=== PATIENT | male | born 1935 | race Caucasian/White ===

== ENCOUNTER → 2018-01-22 07:33 | Outpatient (CLI) | payer MEDICARE, OTHER, SELFPAY ==
--- NOTE | 2018-01-22 | DI.CT.S_ITS ---
PROCEDURE: CT HEAD/BRAIN WO CON INDICATIONS: ESSENTIAL TREMOR/NEUROPATHY TECHNIQUE: Noncontrast 4.5 mm thick angled axial sections acquired from the foramen magnum to the vertex, with coronal and sagittal reformats. For radiation dose reduction, the following was used: automated exposure control, adjustment of mA and/or kV according to patient size. COMPARISON: None. FINDINGS: Image quality: Excellent. CSF spaces: Basal cisterns are patent. No extra-axial fluid collections. The ventricles are symmetric in size and shape. Brain: No intracranial bleeds or masses. Dense calcification involving right frontal lobe periventricular white matter adjacent to frontal horn, which may represent dystrophic calcification from previous infarction/hemorrhage. There is cerebral volume loss for age, with resultant ventricular and sulcal prominence. There are periventricular and deep white matter chronic small vessel ischemic changes. There is intracranial internal carotid artery atherosclerosis. Skull and face: Calvarium and visualized facial bones appear intact, without suspicious lesions. Sinuses: Visualized sinuses and mastoids are clear. IMPRESSION: Dense parenchymal calcification involving right frontal lobe periventricular white matter which may represent dystrophic calcification from old infarction/hemorrhage. No CT evidence of acute intracranial pathology. Dictated by: Mekhi Trinidad M.D. on 01/22/2018 at 9:17 Approved by: Mekhi Trinidad M.D. on 01/22/2018 at 9:26
== END ==
PROVIDERS: PCP Physician Assistant
DX: G25.0 Essential tremor (principal); G62.9 Polyneuropathy, unspecified
CPT/HCPCS: 70450

== ENCOUNTER 2018-02-02 22:17 | Emergency (ER) | payer MEDICARE, OTHER, SELFPAY ==
[2018-02-02 22:41] VITALS: BP 108/70; PULSE 98; RESP 16; TEMP 36.8; O2SAT 95; BMI 25.0
[2018-02-03 00:04] LABS: Bacteria Urine None Seen; WBC Urine None Seen (0-5/HPF)
[2018-02-03 00:25] LABS: Appearance Urine UA CLEAR; Bilirubin Urine UA 1+ (NEGATIVE); Color Urine UA YELLOW; Glucose Urine UA NEGATIVE (Normal); Ketones Urine UA TRACE (NEGATIVE); Leukocyte Esterase Urine UA TRACE (NEGATIVE); Nitrite Urine UA POSITIVE (Negative); Occult Blood Urine UA 3+ (Negative); Protein Urine UA 3+ (Negative); Specific Gravity Urine UA 1.025 (1.000-1.035)
[2018-02-03 00:27] LABS: Culture Indicated Urine Specimen Cultured; RBC Urine >100/HPF (0-5/HPF)
[2018-02-03 00:30] VITALS: BP 122/78; PULSE 92; RESP 16; O2SAT 98
[2018-02-03 00:30] LABS: Hematocrit 40.3 % (41-53); Hemoglobin 13.6 g/dL (13.5-17.5); Mean Corpuscular HGB Conc 33.8 % (30-36); Mean Corpuscular Hemoglobin 30.9 PG (26-34); Mean Corpuscular Volume 91.4 fL (80-100); Platelet Count 219 X10^3/uL (150-400); Red Blood Cell Count 4.41 X10^6/uL (4.5-5.9); Red Cell Distribution Width 14.3 % (11.6-14.8); White Blood Cell Count 5.1 X10^3/uL (4.5-11.0)
[2018-02-03 00:32] LABS: INR 3.8 (0.9-1.3)
[2018-02-03 00:36] LABS: BUN Creatinine Ratio 28.9 (6-22); Blood Urea Nitrogen 26 mg/dL (9-20); Calcium 8.7 mg/dL (8.4-10.2); Carbon Dioxide 27 mmol/L (22-32); Chloride 105 mmol/L (98-107); Estimated Glomerular Filt Rate > 60.0 mL/min (>60); Glucose 92 mg/dL (80-110); HEMOLYSIS < 15 (0-50); Potassium 3.8 mmol/L (3.4-5.1); Sodium 143 mmol/L (137-145)
[2018-02-03 00:37] LABS: Ictotest Urine Negative (Negative)
[2018-02-03 02:23] VITALS: BP 120/92; PULSE 90; RESP 16; O2SAT 98
[2018-02-03 02:29] LABS: Neutrophils Absolute Manual 3315 /uL (3000-5900); Total Cells Counted 100
--- NOTE | 2018-02-03 04:33 | ED_ITS ---
HPI - Male Genitourinary General Chief complaint: Urogenital-Male Stated complaint: BLOOD IN URINE Time Seen by Provider: 02/02/18 22:59 Source: patient Mode of arrival: ambulatory Limitations: no limitations History of Present Illness HPI Narrative: 82-year-old male with history of DVT on Coumadin presents with painless hematuria over the course of the day. He admits to initially pinkish colored urine followed by a darker red but still majority of fluid is urine. He denies any pain nor fever or chills. He admits to a few episodes of nocturia but no significant change. He denies any history of prostate trouble and is unsure if he has had his PSA checked. His most recent Coumadin/INR was 3.2 about a week ago, he is scheduled for a repeat INR on Monday Complaint: other (Hematuria) Onset (ago): hour(s) Duration: constant Severity: moderate Relieving factors: none Exacerbating factors: none Reports blood in urine Related Data Allergies Allergy/AdvReac Type Severity Reaction Status Date / Time No Known Drug Allergies Allergy Verified 02/02/18 22:45 Review of Systems Review of Systems All systems reviewed & are unremarkable except as noted in HPI and below Constitutional Denies chills, Denies fever(s), Denies lethargy and Denies weakness Eyes Denies change in vision, Denies eye discharge, Denies irritation and Denies loss of vision ENT Ears, Nose, Mouth, and Throat: Denies change in voice, Denies neck pain and Denies sore throat Cardiovascular Denies chest pain, Denies irregular heart rhythm, Denies lightheadedness, Denies palpitations, Denies dyspnea, Denies dyspnea on exertion and Denies orthopnea Respiratory Denies cough, Denies dyspnea, Denies dyspnea on exertion and Denies wheezing Gastrointestinal Gastrointestinal: Denies abdominal pain, Denies change in bowel habits, Denies diarrhea, Denies nausea and Denies vomiting Genitourinary Reports hematuria, Denies flank pain, Denies urinary incontinence and Denies urinary urgency Musculoskeletal Denies neck pain Integumentary/Breasts Denies pruritus, Denies erythema, Denies rash and Denies wounds Neurologic Denies confusion, Denies loss of vision and Denies weakness Psychiatric Denies anxiety, Denies confusion, Denies depression, Denies homicidal ideation and Denies suicidal ideation Endocrine Denies palpitations Hematologic/Lymphatic Denies easy bruising Allergic/Immunologic Denies wheezing PFSH Social History Smoking Status: Never smoker Exam Narrative Exam Narrative: GEN: Pleasant, elderly 82-year-old male in no obvious distress , resting comfortably EYES: Pupils are equal, round, and reactive to light and accommodation. Extraoccular muscles are intact bilaterally. There is no subconjunctival hemorrhage or exudate. CHEST: Lungs are clear to auscultation bilaterally and free of wheezes, rales, or rhonchi. Heart rate is regular rhythm, there are no murmurs, clicks, rubs, or gallops. There is no chest wall tenderness. ABD: Abdomen is soft and nontender. There is no guarding or rebound. Bowel sounds are normal in all 4 quadrants. There is no mass or organomegaly. EXT: Full painless ROM of all extremities with no loss of sensation or strength. SKIN: Warm, pink, and dry. No erythema or rash Initial Vital Signs Initial Vital Signs: Vital Signs Temperature 98.3 F 02/02/18 22:41 Pulse Rate 98 H 02/02/18 22:41 Respiratory Rate 16 02/02/18 22:41 Blood Pressure 108/70 02/02/18 22:41 Pulse Oximetry 95 02/02/18 22:41 Course Orders Ordered: ED Orders 02/03/18 00:03 Ictotest Urine Stat Urinalysis and Microscopic Stat Urine Culture Stat Discontinued Medications Albuterol (Ventolin Hfa Prepack) 1 box MISC SEEINSTR ONE Stop: 02/03/18 01:22 Last Admin: 02/03/18 02:22 Dose: Vital Signs - 8 hr 02/02/18 22:41 02/03/18 00:30 02/03/18 02:23 Temperature 98.3 F Pulse Rate 98 H 92 H 90 Respiratory Rate 16 16 16 Blood Pressure 108/70 120/92 H Blood Pressure [Left Arm] 122/78 Pulse Oximetry 95 98 98 MDM - Male Genitourinary Lab Data Result diagrams: 02/02/18 00:18 02/02/18 00:18 Lab Results 02/02/18 02/02/18 02/02/18 Range/Units 00:18 00:18 00:18 WBC 5.1 (4.5-11.0) X10^3/uL RBC 4.41 L (4.5-5.9) X10^6/uL Hgb 13.6 (13.5-17.5) g/dL Hct 40.3 L (41-53) % MCV 91.4 (80-100) fL MCH 30.9 (26-34) PG MCHC 33.8 (30-36) % RDW 14.3 (11.6-14.8) % Plt Count 219 (150-400) X10^3/uL Total Counted 100 Seg Neutrophils % 65.0 (38-70) % Lymphocytes % (Manual) 28.0 (25-45) % Monocytes % (Manual) 3.0 (2-11) % Eosinophils % (Manual) 1.0 L (2-4) % Basophils % (Manual) 2.0 H (0-1) % Myelocytes % 1.0 H (-0) % Neutrophils # (Manual) 3315 (8071-2840) /uL RBC Morphology Not Reportable PT 42.0 H (10.1-12.7) SECONDS INR 3.8 H (0.9-1.3) Sodium 143 (137-145) mmol/L Potassium 3.8 (3.4-5.1) mmol/L Chloride 105 (98-107) mmol/L Carbon Dioxide 27 (22-32) mmol/L BUN 26 H (9-20) mg/dL Creatinine 0.90 (0.66-1.25) mg/dL Estimated GFR > 60.0 (>60) mL/min BUN/Creatinine Ratio 28.9 H (6-22) Glucose 92 (80-110) mg/dL Calcium 8.7 (8.4-10.2) mg/dL Urine Color Urine Appearance Urine pH (4.5-8.0) Ur Specific Str[place] (1.000-1.035) Urine Protein (Negative) Urine Glucose (UA) (Normal) g/dL Urine Ketones (NEGATIVE) Urine Occult Blood (Negative) Urine Nitrate (Negative) Urine Bilirubin (NEGATIVE) Urine Ictotest (Negative) Urine Urobilinogen (0.2) E.U./dL Ur Leukocyte Esterase (NEGATIVE) Urine RBC Urine WBC Ur Squamous Epith Cells Ur Transition Epith Cell Ur Renal Epithelial Cell Calcium Oxalate Crystal Uric Acid Crystals Triple Phos Crystals Other Crystals Amorphous Sediment Urine Bacteria Hyaline Casts Granular Casts RBC Casts WBC Casts Other Casts Urine Mucus Urine Trichomonas Urine Yeast Urine Sperm Ur Culture Indicated? Micro UA Comment 02/02/18 02/03/18 Range/Units 23:35 00:03 WBC (4.5-11.0) X10^3/uL RBC (4.5-5.9) X10^6/uL Hgb (13.5-17.5) g/dL Hct (41-53) % MCV (80-100) fL MCH (26-34) PG MCHC (30-36) % RDW (11.6-14.8) % Plt Count (150-400) X10^3/uL Total Counted Seg Neutrophils % (38-70) % Lymphocytes % (Manual) (25-45) % Monocytes % (Manual) (2-11) % Eosinophils % (Manual) (2-4) % Basophils % (Manual) (0-1) % Myelocytes % (-0) % Neutrophils # (Manual) (3123-7808) /uL RBC Morphology PT (10.1-12.7) SECONDS INR (0.9-1.3) Sodium (137-145) mmol/L Potassium (3.4-5.1) mmol/L Chloride (98-107) mmol/L Carbon Dioxide (22-32) mmol/L BUN (9-20) mg/dL Creatinine (0.66-1.25) mg/dL Estimated GFR (>60) mL/min BUN/Creatinine Ratio (6-22) Glucose (80-110) mg/dL Calcium (8.4-10.2) mg/dL Urine Color Yellow Urine Appearance Clear Urine pH 5.0 (4.5-8.0) Ur Specific [place] 1.025 (1.000-1.035) Urine Protein 3+ H (Negative) Urine Glucose (UA) Negative (Normal) g/dL Urine Ketones Trace H (NEGATIVE) Urine Occult Blood 3+ H (Negative) Urine Nitrate Positive (Negative) Urine Bilirubin 1+ H (NEGATIVE) Urine Ictotest Negative (Negative) Urine Urobilinogen 1.0 (0.2) E.U./dL Ur Leukocyte Esterase Trace H (NEGATIVE) Urine RBC Cancelled >100/hpf Urine WBC Cancelled None seen Ur Squamous Epith Cells Cancelled Ur Transition Epith Cell Cancelled Ur Renal Epithelial Cell Cancelled Calcium Oxalate Crystal Cancelled Uric Acid Crystals Cancelled Triple Phos Crystals Cancelled Other Crystals Cancelled Amorphous Sediment Cancelled Urine Bacteria Cancelled None seen Hyaline Casts Cancelled Granular Casts Cancelled RBC Casts Cancelled WBC Casts Cancelled Other Casts Cancelled Urine Mucus Cancelled Urine Trichomonas Cancelled Urine Yeast Cancelled Urine Sperm Cancelled Ur Culture Indicated? Cancelled Specimen cultured Micro UA Comment Cancelled Not Reportable Discharge Plan Departure Patient Disposition: Home Clinical Impression: Benign hematuria, Abnormal INR Discharge Date/Time: 02/03/18 02:38 Interventions: ED Discharge Assessment Last Done: 02/03/18 02:23 Instructions: Blood in Urine Activity Restrictions/Additional Instructions: *You have been diagnosed with [ acute hematuria ] *What to do: *Skip your coumadin tomorrow and Monday, return to normal dosing on Monday. Follow up for your INR on Monday as planned *Follow up with your primary care provider in 2-3 days, call for an appointment. Let them know you were seen in the Emergency Department and that we ask that you be seen in follow up *Return to ER if you should have any new, worsening or concerning symptoms Referrals: Anne Artis PA-C [Primary Care Provider] -
== END 2018-02-03 02:38 | disposition home or self-care (01) ==
PROVIDERS: Emergency Provider Emergency Medicine; PCP Physician Assistant
DX: R31.9 Hematuria, unspecified (principal); R79.1 Abnormal coagulation profile
CPT/HCPCS: 80048; 81001; 85025; 85610; 87077; 87086; 87186; 99282; 99283

== ENCOUNTER → 2018-02-20 10:15 | Outpatient (CLI) | payer MEDICARE, OTHER, SELFPAY ==
--- NOTE | 2018-02-20 | DI.US.S_ITS ---
PROCEDURE: US ABDOMEN COMPLETE INDICATIONS: HEMATURIA TECHNIQUE: Real-time scanning was performed of the abdominal and retroperitoneal organs, with image documentation. COMPARISON: , CT, CT ABD PELVIS W CON, 01/07/2015, 14:11. FINDINGS: Liver: Liver is normal in size and homogeneous in echotexture. There is a solid-appearing mass within the anterior right hepatic lobe with internal mild vascularity, measuring up to 5.2 x 5.8 x 5.1 cm. A solid mass in this area was not identified on prior CT scanning that showed scattered moderate and large hepatic cyst in this general area, dated 01/07/15. Several of these cysts can be seen, minimally complex containing low-level internal echoes and the largest measures up to 12.0 x 7.8 x 1.6 cm. Gallbladder: Surgically absent. Biliary ducts: Intrahepatic bile ducts are non-dilated. Extrahepatic bile duct caliber measures 5.3 mm. Normal is 6-7 mm or less in diameter, or 10 mm or less post-cholecystectomy. Pancreas: Visualized portions of the pancreas are sonographically normal. Spleen: Spleen is normal in size and homogeneous in echotexture. Kidneys: Kidneys are normal in size and echotexture. Right kidney measures 10.8 cm long; left kidney measures 11.4 cm long. No hydronephrosis or nephrolithiasis. No solid masses. Aorta: Visualized aorta is normal in caliber at less than 3 cm. Iliacs: Proximal common iliac arteries are normal in caliber at less than 2.5 cm. IVC: Intrahepatic inferior vena cava is patent. Miscellaneous: No free abdominal fluid. IMPRESSION: The other solid mass within the anterior right hepatic lobe measuring up to 5.8 cm in maximal dimension, adjacent to the previously documented hepatic cysts which show low-level internal echoes on ultrasound. Contrast-enhanced CT scanning of the abdomen/pelvis is recommended. Both primary and metastatic malignancy could produce this appearance. Additionally, chest imaging at least utilizing PA and lateral chest plain film is recommended to assess for origin of the presumed malignancy within the liver parenchyma. The CT scanning also will assist in preparing for anticipated biopsy. Chest CT scanning would provide a more accurate assessment for origin of metastatic disease than plain film imaging, in my opinion. Dictated by: Sonu Owusu M.D. on 02/20/2018 at 13:04 Approved by: Sonu Owusu M.D. on 02/20/2018 at 13:10
== END ==
PROVIDERS: PCP Physician Assistant; Visit Provider Physician Assistant
DX: R31.9 Hematuria, unspecified (principal); R16.0 Hepatomegaly, not elsewhere classified; K76.89 Other specified diseases of liver
CPT/HCPCS: 76700

== ENCOUNTER → 2018-02-23 09:28 | Outpatient (CLI) | payer MEDICARE, OTHER, SELFPAY ==
--- NOTE | 2018-02-23 | DI.CT.S_ITS ---
PROCEDURE: CT ABDOMEN PELVIS W CON INDICATIONS: Hepatic mass seen on ultrasound. TECHNIQUE: After the administration of oral and intravenous contrast, 5 mm thick sections acquired from the diaphragms to the symphysis. 5 mm thick coronal and sagittal reformats were performed. For radiation dose reduction, the following was used: automated exposure control, adjustment of mA and/or kV according to patient size. COMPARISON: [facility], US, US ABDOMEN COMPLETE, 02/20/2018, 11:05. FINDINGS: Image quality: Excellent. ABDOMEN: Lung bases: There is mild nonspecific pleural thickening noted anteriorly along the inferior right middle lobe and inferior left lingular likely representing scarring. Heart size is normal. There is a small pericardial effusion anteriorly. Solid organs: There are in multiple cysts of varying sizes in the right and left hepatic lobes. The largest, within the anterior right hepatic lobe measures up to approximately 10.9 x 11.3 x 9.8 cm in dimension. A few of the cysts demonstrate attenuation values slightly higher than expected for simple cysts suggestive of internal proteinaceous or hemorrhagic products. A discrete solid hepatic mass is not well-defined on this single phase of contrast enhancement. There is a small curvilinear mass lesion lateral to the right hepatic lobe inferiorly measuring approximately 2.3 cm in craniocaudal dimension by 2.3 x 1.1 cm and transverse dimension. This appears to extend into the lateral abdominal wall musculature. Biliary system is non-dilated. Pancreas enhances normally. Spleen is normal in size and enhancement. No adrenal nodules. Kidneys are normal in size and enhancement, without hydronephrosis. Peritoneum and bowel: There is a small hiatal hernia. Stomach and small bowel loops are normal in caliber and wall thickness. There are a few segments of mild colonic wall thickening including segmental involvement at the hepatic and splenic flexures as well as in the sigmoid colon with mild associated fat stranding. Findings are suggestive of a mild colitis. There are No free fluid or air. Nodes and vessels: No retroperitoneal or mesenteric adenopathy. Aorta and inferior vena cava are normal in caliber. Miscellaneous: No ventral hernias. PELVIS: Genitourinary: There is incomplete distention of the urinary bladder. However, there is lateral wall thickening and mucosal enhancement with mild fatty stranding consistent with a nonspecific cystitis. There are 2 small ureteroceles are bladder diverticula extending from the right aspect of the bladder. The prostate is borderline enlarged. Miscellaneous: No inguinal hernias or adenopathy. Bones: No suspicious bony lesions. No vertebral body compression fractures. IMPRESSION: 1. No discrete solid hepatic mass identified on this single phase of contrast enhanced imaging. Multiple hepatic cysts are redemonstrated including probable hyperdense cysts. Further evaluation may be obtained with a liver protocol MRI to identify a mass correlate to the prior ultrasound as well as further characterize the complex cystic lesions. 2. Bladder wall thickening and mucosal enhancement with mild perivesicular fat stranding compatible with a nonspecific cystitis. Recommend correlation with urinalysis. 3. Scattered segments of mild colonic wall thickening suggestive of a mild colitis. Dictated by: Inocente Beach M.D. on 02/23/2018 at 11:20 Approved by: Inocente Beach M.D. on 02/23/2018 at 11:38
== END ==
PROVIDERS: PCP Physician Assistant; Visit Provider Physician Assistant
DX: R16.0 Hepatomegaly, not elsewhere classified (principal); K76.89 Other specified diseases of liver
CPT/HCPCS: 74177; Q9967

== ENCOUNTER → 2018-03-08 07:51 | Outpatient (CLI) | payer MEDICARE, OTHER, SELFPAY ==
--- NOTE | 2018-03-08 | DI.MRI.S_ITS ---
PROCEDURE: MR ABDOMEN WO/W CON INDICATIONS: LIVER MASS TECHNIQUE: Coronal HASTE, axial 2D FLASH in- and [id number]; axial breath-hold T2 FSE. Dynamic axial VIBE during the administration of contrast; post-contrast coronal VIBE or 2D FLASH with fat saturation from the hepatic dome to the iliac crests. Optional diffusion weighted imaging and ADC may be performed. COMPARISON: [facility], CT, CT ABD PELVIS W CON, 01/07/2015, 14:11. [facility], US, ABDOMEN SONOGRAM, 04/28/2014, 13:15. [facility], CT, ABD/PELVIS W/CON (PNL), 04/28/2014, 11:04. [facility], US, US ABDOMEN COMPLETE, 02/20/2018, 11:05. [facility], CT, CT ABDOMEN PELVIS W CON, 02/23/2018, 10:25. FINDINGS: Image quality: Excellent. Lung bases: No basal pleural effusions. Heart size is normal. Solid organs: Liver is unchanged in size and enhancement. Identified again within the hepatic parenchyma is the presence of multiple cysts containing variable internal content, with variable appearance on T1, T2 and contrast-enhanced pulse sequences. This complexity also is seen on CT scanning and ultrasound scanning recently obtained. A definite malignant appearing mass is not seen. Gallbladder appears surgically absent. Biliary system is non dilated. Pancreas is normal in morphology. Spleen is normal in size and enhancement. No adrenal nodules. Both kidneys demonstrate normal size and enhancement, without hydronephrosis. Nodes and vessels: No retroperitoneal or mesenteric adenopathy by size criteria. Aorta and inferior vena cava are normal in size. Bowel and peritoneum: Unenhanced bowel loops are normal in caliber. No free fluid. Bones and soft tissues: No ventral hernias. Bone marrow is normal in overall signal. IMPRESSION: The liver parenchyma contains multiple simple and complex cysts, small and large, and a definite malignant appearing mass is not found. The imaging characteristics were most worrisome on recent ultrasound scanning, dated 02/20/18. A followup ultrasound therefore is recommended in 6 months and a followup ultrasound in 6 months thereafter would be recommended assuming absence of appreciable change management coordinator time. The likelihood of malignancy in my opinion is very low. Dictated by: Sonu Owusu M.D. on 03/08/2018 at 16:20 Approved by: Sonu Owusu M.D. on 03/08/2018 at 16:38
== END ==
PROVIDERS: PCP Physician Assistant; Visit Provider Physician Assistant
DX: K76.89 Other specified diseases of liver (principal)
CPT/HCPCS: 74183; A9579

== ENCOUNTER → 2018-05-30 13:19 | Outpatient (CLI) | payer MEDICARE, OTHER, SELFPAY ==
--- NOTE | 2018-05-30 | DI.RAD.S_ITS ---
PROCEDURE: XR CERVICAL SPINE 2V OR 3V INDICATIONS: Cervicalgia TECHNIQUE: 3 view(s) of the cervical spine were acquired. COMPARISON: None. FINDINGS: Bones: No fractures or dislocations to the T1 level. The lateral masses of C1 appear intact on the odontoid view. No suspicious bony lesions. Note is made of moderately severe degenerative disc disease at C34 and also at C5-6 and especially C6-7. No subluxation is associated. Soft tissues: No prevertebral soft tissue swelling. 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 No subluxation or trauma is associated. Dictated by: Sonu Owusu M.D. on 05/30/2018 at 13:57 Approved by: Sonu Owusu M.D. on 05/30/2018 at 13:58
== END ==
PROVIDERS: PCP Physician Assistant; Visit Provider Physician Assistant
DX: M50.31 Other cervical disc degeneration, high cervical region (principal); M47.812 Spondylosis without myelopathy or radiculopathy, cervical region
CPT/HCPCS: 72040

== ENCOUNTER → 2018-09-19 11:46 | Outpatient (CLI) | payer MEDICARE, OTHER, SELFPAY ==
--- NOTE | 2018-09-19 | DI.US.S_ITS ---
PROCEDURE: US ABDOMEN COMPLETE INDICATIONS: 6 MONTH FOLLOW UP TECHNIQUE: Real-time scanning was performed of the abdominal and retroperitoneal organs, with image documentation. COMPARISON: [facility], CT, CT ABDOMEN PELVIS W CON, 02/23/2018, 10:25. [facility], US, US ABDOMEN COMPLETE, 02/20/2018, 11:05. FINDINGS: Liver: The liver measures 16.8 cm per multiple hepatic cysts are again identified relatively unchanged. The previously identified solid a hepatic mass in the right lobe measures 15 x 53 x 56 mm compared to 52 x 50 x 52 mm on prior exam. Within the left lobe of the liver, there is a complex focus of hyperechogenicity measuring 20 x 19 x 24 mm. This was not visualized on prior exam. Gallbladder: Gallbladder has been removed. Biliary ducts: Intrahepatic bile ducts are non-dilated. Extrahepatic bile duct caliber measures 7.7 mm. Normal is 6-7 mm or less in diameter, or 10 mm or less post-cholecystectomy. Pancreas: Not visualized.. Spleen: Spleen is normal in size and homogeneous in echotexture. Kidneys: Kidneys are normal in size and echotexture. Right kidney measures 9.8 cm long; left kidney measures 11.2 cm long. No hydronephrosis or nephrolithiasis. No solid masses. Aorta: Visualized aorta is normal in caliber at less than 3 cm. Iliacs: Not visualized. IVC: Intrahepatic inferior vena cava is patent. Miscellaneous: No free abdominal fluid. IMPRESSION: 1. Multiple hepatic cysts, unchanged 2. Right hepatic mass appearing to demonstrate mild interval increase in size. Short interval imaging followup is recommended. 3. Partial appearance of complex focus of heteroechogenicity within the left lobe not previously visualized. While this could represent a complex cyst, development of new mass lesion of other etiology cannot be excluded. As clinically indicated, further evaluation with CT or MRI may be obtained. Dictated by: Salma Funk M.D. on 09/19/2018 at 14:14 Approved by: Salma Funk M.D. on 09/19/2018 at 14:20
== END ==
PROVIDERS: PCP Physician Assistant; Visit Provider Physician Assistant
DX: K76.89 Other specified diseases of liver (principal); R16.0 Hepatomegaly, not elsewhere classified
CPT/HCPCS: 76700

== ENCOUNTER → 2018-09-27 11:15 | Outpatient (CLI) | payer MEDICARE, OTHER, SELFPAY ==
--- NOTE | 2018-09-27 | DI.CT.S_ITS ---
PROCEDURE: CT ABDOMEN PELVIS W CON INDICATIONS: Follow up from US TECHNIQUE: After the administration of oral and intravenous contrast, 5 mm thick sections acquired from the diaphragms to the symphysis. 5 mm thick coronal and sagittal reformats were performed. For radiation dose reduction, the following was used: automated exposure control, adjustment of mA and/or kV according to patient size. COMPARISON: [facility], US, US ABDOMEN COMPLETE, 09/19/2018, 12:27. [facility], CT, CT ABDOMEN PELVIS W CON, 02/23/2018, 10:25. FINDINGS: Image quality: Excellent. ABDOMEN: Lung bases: Lung bases are clear. Heart size is normal. Stable, mild thickening of the anterior pericardium. Solid organs: There has been interval decrease in size and increase in density of one of the anterior left lobe hepatic cysts which may account for changes seen on ultrasound. A no other significant change is seen to any of the multiple hepatic cysts in the right and left hepatic lobes. No visible suspicious solid mass on this single phase of imaging. A few cysts demonstrate scant, peripheral calcification. One in the central right hepatic lobe demonstrates a few fine septations, stable. No intrahepatic biliary dilatation.. Gallbladder is surgically absent.. Biliary system is non-dilated. Pancreas enhances normally. Spleen is normal in size and enhancement. No adrenal nodules. Kidneys are normal in size and enhancement, without hydronephrosis. Peritoneum and bowel: Stomach, small bowel, and colon loops are normal in caliber and wall thickness. No free fluid or air. Nodes and vessels: No retroperitoneal or mesenteric adenopathy. Aorta and inferior vena cava are normal in caliber. Moderate abdominal aortic atherosclerotic calcification. Miscellaneous: No ventral hernias. PELVIS: Genitourinary: The bladder wall is diffusely thickened, however the bladder is decompressed. There is a small right posterolateral bladder diverticulum. Prostate gland is within normal limits for size. Miscellaneous: No inguinal hernias or adenopathy. Bones: No suspicious bony lesions. No vertebral body compression fractures. IMPRESSION: 1. Interval partial involution of one of the numerous left hepatic lobe cysts, probably proteinaceous or hemorrhagic cyst resulting in the appearance seen on recent ultrasound. No development of a left lobe solid mass. 2. Fairly stable appearance of other cystic liver lesions compared to CT dated 02/23/18. 3. Cholecystectomy. 4. Aortic atherosclerosis. 5. Urinary bladder wall thickening and small right bladder diverticulum, chronic. Dictated by: Celia Hollingsworth M.D. on 09/27/2018 at 16:23 Approved by: Celia Hollingsworth M.D. on 09/27/2018 at 16:36
== END ==
PROVIDERS: PCP Physician Assistant; Visit Provider Physician Assistant
DX: K76.89 Other specified diseases of liver (principal); I70.0 Atherosclerosis of aorta; Z90.49 Acquired absence of other specified parts of digestive tract; N32.3 Diverticulum of bladder
CPT/HCPCS: 74177; Q9967

== ENCOUNTER → 2018-10-10 13:08 | Outpatient (CLI) | payer MEDICARE, OTHER, SELFPAY ==
--- NOTE | 2018-10-10 | DI.RAD.S_ITS ---
PROCEDURE: XR SHOULDER LT MIN 2V INDICATIONS: Unspecified rotator cuff tear or rupture of left shoulder TECHNIQUE: 3 views of the shoulder were acquired. COMPARISON: [facility], CR, CHEST 1VW (PORTABLE), 04/28/2014, 9:49. [facility], CR, CHEST 2VW, 04/25/2013, 12:00. FINDINGS: Bones: No fractures or dislocations. No suspicious bony lesions. Visualized ribs appear intact. Soft tissue anchors project in the left humeral head. There is also soft tissue anchor projecting in the axillary pouch, raise the possibility of hardware migration however this is unchanged since 04/28/14. Moderate AC joint degeneration. There is moderate glenohumeral degenerative joint disease Soft tissues: No suspicious soft tissue calcifications. IMPRESSION: Moderate left shoulder joint degeneration. Dictated by: Lawrence Dialey M.D. on 10/10/2018 at 16:23 Approved by: Lawrence Dailey M.D. on 10/10/2018 at 16:28
== END ==
PROVIDERS: PCP Physician Assistant; Visit Provider Physician Assistant
DX: M75.102 Unspecified rotator cuff tear or rupture of left shoulder, not specified as traumatic (principal); M19.012 Primary osteoarthritis, left shoulder
CPT/HCPCS: 73030

== ENCOUNTER → 2019-06-13 09:28 | Outpatient (CLI) | payer MEDICARE, OTHER, SELFPAY ==
--- NOTE | 2019-06-13 | DI.RAD.S_ITS ---
PROCEDURE: XR CHEST 2V INDICATIONS: xr chest/ acute bronchitis, unspecified TECHNIQUE: 2 views of the chest were acquired. COMPARISON: [facility], CR, CHEST 2VW, 04/25/2013, 12:00. [facility], CR, XR CHEST 1 VIEW, 06/24/2018, 9:54. FINDINGS: Surgical changes and devices: None. Lungs and pleura: Lungs are clear. No pleural effusions or pneumothorax. Mediastinum: Mediastinal contours are normal. Heart size is normal. Bones and chest wall: No suspicious bony abnormalities. Soft tissues appear unremarkable. IMPRESSION: No acute cardiopulmonary disease. Dictated by: Dorina Patel M.D. on 06/13/2019 at 11:27 Approved by: Dorina Patel M.D. on 06/13/2019 at 11:30
== END ==
PROVIDERS: PCP Student in an Organized Health Care Education/Training Program; Visit Provider Student in an Organized Health Care Education/Training Program
DX: J20.9 Acute bronchitis, unspecified (principal)
CPT/HCPCS: 71046

== ENCOUNTER 2019-08-26 16:35 | Emergency (ER) | payer MEDICARE, OTHER, SELFPAY ==
--- NOTE | 2019-08-26 16:40 | ED.GENADULT ---
HPI - General Adult General Chief complaint: Fall Stated complaint: GLF Time Seen by Provider: 08/26/19 16:35 Source: patient and EMS Mode of arrival: EMS Limitations: no limitations History of Present Illness HPI narrative: 83-year-old male. On Coumadin. Here for evaluation of injuries that he sustained when he was working in his garden stood up and became lightheaded and fell over. Did hit the back of his head. There was no loss of consciousness. Did have some bleeding from the back of his head. He reports no other injuries from the event. Arrived not on a backboard not in a cervical collar. Related Data Previous Rx's Medication Instructions Recorded ondansetron 4 mg PO Q6H PRN #14 tab 08/26/19 Allergies Allergy/AdvReac Type Severity Reaction Status Date / Time Penicillins Allergy Rash Verified 08/26/19 17:22 multivitamin AdvReac Uncoded 08/26/19 17:22 Review of Systems Constitutional Constitutional: Denies fever(s) and Denies headache(s) Eyes Eyes: Denies change in vision ENT Ears, Nose, Mouth, and Throat: Denies headache(s) Cardiovascular Cardiovascular: Denies chest pain, Denies syncope, Denies rapid heart rate, Denies leg edema, Denies palpitations and Denies dyspnea Respiratory Respiratory: Denies cough and Denies dyspnea Gastrointestinal Gastrointestinal: Denies abdominal pain, Denies nausea and Denies vomiting Musculoskeletal Musculoskeletal: Denies myalgias and Denies arthralgias Integumentary/Breasts Comments: Abrasion the back of his head Neurologic Neurologic: Denies confusion, Denies syncope and Denies headache(s) Psychiatric Psychiatric: Denies confusion Endocrine Endocrine: Denies palpitations Hematologic/Lymphatic Hematologic/Lymphatic: Denies easy bleeding and Denies easy bruising Patient History Medical History Atrial fibrillation (Acute) Hypertension (Acute) Social History Smoking Status: Never smoker Smoking Status: Never smoker Substance Use Type: does not use Exam Initial Vital Signs Initial Vital Signs: Vital Signs Temperature 98.3 F 08/26/19 16:45 Pulse Rate 86 08/26/19 16:45 Respiratory Rate 16 08/26/19 16:45 Blood Pressure 137/94 H 08/26/19 16:45 Pulse Oximetry 96 08/26/19 16:45 Const General: cooperative, comfortable, well developed, well groomed and No acute distress Limitations: mental status not altered HENMT Head: abrasion Resp Effort & Inspection: normal respiratory effort Auscultation: clear to auscultation bilaterally Cardio Rate: regular rate Rhythm: regular rhythm Skin Other: Abrasion to back of head Neuro General: alert, awake and oriented x3 Cognition: normal cognition Speech: speech normal Extrem General: normal to inspection and capillary refill normal Psych Appearance: grossly normal and well kempt Scores GCS [place] coma scale eye opening: Spontaneous [place] coma scale verbal response: Orientated [place] coma scale motor response: Obey commands [place] coma scale total score: 15 Course Orders Ordered: ED Orders 08/26/19 16:39 CT head/brain wo con Stat 08/26/19 16:40 CT cervical spine wo con Stat XR chest 1V Stat Discontinued Medications Ondansetron HCl (Zofran) 4 mg IV NOW ONE Stop: 08/26/19 16:54 Last Admin: 08/26/19 17:16 Dose: 4 mg Documented by: IRAIS Ondansetron HCl (Zofran) 4 mg IV NOW ONE Stop: 08/26/19 17:47 Last Admin: 08/26/19 17:49 Dose: 4 mg Documented by: CHELSIE Vital Signs Vital signs: Vital Signs - 8 hr 08/26/19 16:45 08/26/19 17:09 08/26/19 17:30 Temperature 98.3 F Pulse Rate 86 90 83 Respiratory Rate 16 16 20 Blood Pressure 137/94 H Blood Pressure [Left Arm] 150/74 H 143/83 H Pulse Oximetry 96 97 97 Medical Decision Making Imaging Data CT scan - head: Radiologist's Impression: [address] [address] [address] Scan Report Signed Patient: Logan Mahmood GMR#: [id number] : 1935cct:[id number] Age/Sex: 83 / MDate of Service: 08/26/19 Loc: ED Accession Number: [id number] Procedure: CT head/brain wo con Ordering Provider: Piyush Alaniz D.O. PROCEDURE: CT HEAD/BRAIN WO CON INDICATIONS: Fall blood thinners TECHNIQUE: Noncontrast 4.5 mm thick angled axial sections acquired from the foramen magnum to the vertex, with coronal and sagittal reformats. For radiation dose reduction, the following was used: automated exposure control, adjustment of mA and/or kV according to patient size. COMPARISON: [facility], CT, CT HEAD/BRAIN WO CON, 01/22/2018, 7:48. FINDINGS: Image quality: Excellent. CSF spaces: Basal cisterns are patent. No extra-axial fluid collections. The ventricles are symmetric in size and shape. Brain: No intracranial bleeds. There is a 1.7 1.7 x 2.0 cm coarse calcification in the anterior right frontal periventricular white matter There is cerebral volume loss for age, with resultant ventricular and sulcal prominence. There are periventricular and deep white matter chronic small vessel ischemic changes. There is intracranial internal carotid artery atherosclerosis. Skull and face: Calvarium and visualized facial bones appear intact, without suspicious lesions. Right parietal scalp hematoma. Sinuses: Mucosal thickening noted in the maxillary sinuses bilaterally. Postsurgical changes compatible prior functional endoscopic sinus surgery noted. mastoids are clear. IMPRESSION: 1. No acute intracranial disease process. 2. 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 Finding is not significantly changed compared to 01/22/2018. Dictated by: Tamiko Loza MD, PhD on 08/26/2019 at 17:14 Approved by: Tamiko Loza MD, PhD on 08/26/2019 at 17:19 CT - cervical spine: Radiologist's Impression: [place] [address] CT Scan Report Signed Patient: Logan Mahmood GMR#: [id number] : 6Acct:[id number] Age/Sex: 83 / MDate of Service: 08/26/19 Loc: ED Accession Number: [id number] Procedure: CT cervical spine wo con Ordering Provider: Piyush Alaniz D.O. PROCEDURE: CT CERVICAL SPINE WO CON INDICATIONS: Fall with neck pain TECHNIQUE: Noncontrast 3 mm thick sections acquired from the skull base to the T4 level. Sagittal and coronal reformats were then constructed. For radiation dose reduction, the following was used: automated exposure control, adjustment of mA and/or kV according to patient size. COMPARISON: None. FINDINGS: Image quality: Excellent. Bones: No fractures or dislocations. Visualized superior ribs are intact. Spine degenerative disc disease and facet arthropathy. Chronic appearing posterior right rib fracture. Soft tissues: Prevertebral soft tissues are normal in thickness. No paravertebral hematomas. No apical pneumothoraces. IMPRESSION: No cervical spine fracture. No acute osseous lesion. If symptoms and/or clinical suspicion for pathology persists, evaluation with MRI may be helpful for further assessment. Dictated by: Tamiko Loza MD, PhD on 08/26/2019 at 17:20 Approved by: Tamiko Loza MD, PhD on 08/26/2019 at 17:25 Chest x-ray: Radiologist's Impression: [address] [address] XRay Report Signed Patient: Logan Mahmood GMR#: [id number] : 6Acct:[id number] Age/Sex: 83 / MDate of Service: 08/26/19 Loc: ED Accession Number: [id number] Procedure: XR chest 1V Ordering Provider: Piyush Alaniz D.O. PROCEDURE: XR CHEST 1V INDICATIONS: Fall with upper chest pain TECHNIQUE: One view of the chest was acquired. [facility] 9:28. FINDINGS: Surgical changes and devices: None. Lungs and pleura: Lungs are clear. No pleural effusions or pneumothorax. Mediastinum: Mediastinal contours appear normal. Heart size is normal. Bones and chest wall: No suspicious bony lesions. Overlying soft tissues appear unremarkable. IMPRESSION: No acute cardiopulmonary disease process. Dictated by: Tamiko Loza MD, PhD on 08/26/2019 at 17:25 Approved by: Tamiko Loza MD, PhD on 08/26/2019 at 17:26 [facility] Narrative Medical decision making narrative: Head and cervical spine CT unremarkable. He was placed in a cervical collar upon arrival secondary to midline neck pain. Patient does have abrasion to the back of his head. No indication for suturing here in the ER. That have some nausea and vomiting. Suspect this is related to his head injury. Patient ambulated around the emergency department. Was given return precautions and follow-up instructions. Expressed understanding and agreement. Discharge Plan Departure Patient Disposition: Home Clinical Impression: Abrasion of scalp Qualifiers: Encounter type: initial encounter Qualified Code(s): S00.01XA - Abrasion of scalp, initial encounter Concussion Qualifiers: Encounter type: initial encounter Loss of consciousness presence/duration: without LOC Qualified Code(s): S06.0X0A - Concussion without loss of consciousness, initial encounter Instructions: DI for Concussion, How to Prevent Falls Activity Restrictions/Additional Instructions: You can shower like normal. You can use soap and water and shampoo like normal. You have no restrictions on your activity or diet. Use the medications as needed for the nausea. Contact her primary provider for follow-up. Return to the emergency department for any new or worsening symptoms Prescriptions: New ondansetron 4 mg tablet,disintegrating 4 mg PO Q6H PRN (Reason: nausea and vomiting) Qty: 14 RF: 0 Referrals: Dali Munson PA-C [Primary Care Provider] -
[2019-08-26 16:45] VITALS: BP 137/94; PULSE 86; RESP 16; TEMP 36.8; O2SAT 96; BMI 25.4
[2019-08-26 17:09] VITALS: BP 150/74; PULSE 90; RESP 16; O2SAT 97
[2019-08-26] MEDS: ONDANSETRON 4 MG/2 ML INJ IV ×2 (17:16→17:49)
--- NOTE | 2019-08-26 17:17 | PC.NURSE ---
Patient returned from CT and still c/o nausea. Per CT staff and nurse, patient had emesis again in CT scan. Patient with GCS 15 on arrival back to room. Patient states he lives alone. Asked patient how he would get home if d/cd from ER and he states he would take a taxi.
[2019-08-26 17:30] VITALS: BP 143/83; PULSE 83; RESP 20; O2SAT 97
--- NOTE | 2019-08-26 17:54 | PC.NURSE ---
Called patient's grandson with permission to notify of ER visit. 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 Notified receiving nurse and patient.
--- NOTE | 2019-08-26 17:56 | PC.NURSE ---
Cleaned patient's head wound with cool water and gauze. No laceration noted that can be repaired. Dr Alaniz viewing wound after wound care performed. Patient tolerated well but still c/o nausea. Re-medicated with additional dose of zofran.
[2019-08-26 18:00] VITALS: BP 150/90; PULSE 73; RESP 19; O2SAT 96
[2019-08-26 18:30] VITALS: BP 150/79; PULSE 75; RESP 20; O2SAT 97
[2019-08-26] MEDS: ACETAMINOPHEN 325 MG TABLET 650 MG PO (18:58)
== END 2019-08-26 19:12 | disposition home or self-care (01) ==
PROVIDERS: Emergency Provider Emergency Medicine; PCP Student in an Organized Health Care Education/Training Program
DX: S06.0X0A Concussion without loss of consciousness, initial encounter (principal); S00.01XA Abrasion of scalp, initial encounter; M54.2 Cervicalgia; R07.9 Chest pain, unspecified; I48.91 Unspecified atrial fibrillation; Z79.01 Long term (current) use of anticoagulants; I10 Essential (primary) hypertension; R11.2 Nausea with vomiting, unspecified; W18.30XA Fall on same level, unspecified, initial encounter
CPT/HCPCS: 36415; 70450; 71045; 72125; 96374; 96376; 99284; 99285; J2405